=== PATIENT | male | born 1940 | race Caucasian/White ===

== ENCOUNTER → 2016-10-01 | Outpatient (REF) ==
[~2016-10-01] MED LIST: ACTOS30 MG PO; ASPIRIN E.C. 8181 MG PO; CARDURA 2MG2 MG PO; FERROUS SU325 MG/TAB PO; FLOMAX 0.40.4 MG/CAP PO; FLONASE NASAL S16 GM NS; FOLIC ACID 40400 MCG PO; LAMISIL250 MG PO; LASIX 40MG TABL40 MG PO; MICRONASE2.5 MG PO; PRILOTC; SYNTHROID0.088 MG/T PO; TYLENOL 325MG325 MG PO; VITAMIN C500 MG PO; ZOCOR 10MG10 MG PO
== END ==
LOC: ZLAB.WCH 14:54
DX: Z01.89 Encounter for other specified special examinations (principal)

== ENCOUNTER → 2017-01-04 | Outpatient (REF) | LOC: ZLAB.WCH 18:02 | DX: Z01.89 Encounter for other specified special examinations (principal) ==

== ENCOUNTER → 2017-04-16 | Outpatient (REF) ==
[2017-04-16 16:27] LABS: PSA-TOTAL 1.42 ng/mL (0-4); THYROID STIMULATING HORMONE 3.14 uIU/mL (0.465-4.680)
== END ==
LOC: ZLAB.WCH 14:23
PROVIDERS: Internal Medicine
DX: Z01.89 Encounter for other specified special examinations (principal)
CPT/HCPCS: G0103

== ENCOUNTER → 2017-07-26 | Outpatient (REF) | LOC: ZLAB.WCH 08:38 | DX: Z01.89 Encounter for other specified special examinations (principal) ==

== ENCOUNTER → 2017-10-29 | Outpatient (REF) | LOC: ZLAB.WCH 15:06 | DX: Z01.89 Encounter for other specified special examinations (principal) ==

== ENCOUNTER 2018-01-21 09:34 | Outpatient (CLI) | payer MEDICARE, OTHER ==
[~2018-01-21] VITALS: Ht 175.3 cm; Wt 135.3 kg
[~2018-01-21 09:34] MED LIST changes: +AMARYL4 MG PO; +ASPIRIN 81M81 MG/TA2 PO; +FLEXERIL5 MG PO; +GLUCOPHAGE500 MG/TAB PO; +LIPITOR 40MG TA40 MG PO; +LOPRESSOR 550 MG/TAB PO; +NAPROXEN 3375 MG/TAB PO; +ZESTRIL 5MG5 MG PO
[2018-01-21 10:13] VITALS: BP 111/62; PULSE 91
[2018-01-21 11:24] VITALS: BP 115/61; PULSE 102
[2018-01-21 11:35] VITALS: BP 108/74; PULSE 78
[2018-01-21 11:50] VITALS: BP 113/80; PULSE 95
[2018-01-21 12:06] VITALS: BP 111/48; PULSE 96
[2018-01-21 12:30] VITALS: BP 133/64; PULSE 95
== END 2018-01-21 12:58 | disposition home or self-care (01) ==
LOC: COL.RAD 09:34
DX: M48.07 Spinal stenosis, lumbosacral region (principal); M51.26 Other intervertebral disc displacement, lumbar region; M12.88 Other specific arthropathies, not elsewhere classified, other specified site; Z95.0 Presence of cardiac pacemaker
CPT/HCPCS: Q9965

== ENCOUNTER 2018-03-11 17:34 | Emergency (ER) | payer MEDICARE, OTHER ==
[~2018-03-11] VITALS: Ht 177.8 cm; Wt 131.8 kg
[2018-03-11] MEDS ORDERED: LASIX 80MG TABL80 MG PO (17:57)
[2018-03-11] MEDS ORDERED: GLUCOPHAGE500 MG/TAB PO (17:58)
[2018-03-11] MEDS ORDERED: FLOMAX 0.40.4 MG/CAP PO (17:58)
[2018-03-11] MEDS ORDERED: AMARYL4 MG PO (17:58)
[2018-03-11] MEDS ORDERED: SYNTHROID0.088 MG/T PO (18:03)
[2018-03-11] MEDS ORDERED: LIPITOR 40MG TA40 MG PO (18:03)
[2018-03-11] MEDS ORDERED: TOPROL XL 50MG50 MG PO (18:03)
[2018-03-11] MEDS ORDERED: ZESTRIL 5MG5 MG PO (18:03)
[2018-03-11] MEDS ORDERED: EC-NAPROSYN375 MG PO (18:04)
[2018-03-11] MEDS ORDERED: NITROSTAT0.4 MG/TAB SL (18:04)
[2018-03-11] MEDS ORDERED: NORCO 325 MG-7.1 TAB PO (18:04)
[2018-03-11] MEDS ORDERED: ASPIRIN 81M81 MG/TA2 PO (18:04)
[2018-03-11 20:00] LABS: BASO % 0.3 % (0.0-2.0); EOS # 0.2 (0.0-0.7); EOS % 2.6 % (0-4.0); GRAN % 75.5 % (42.2-75.2); LYMPH # 0.8 (1.2-3.4); LYMPH % 11.4 % (20.0-51.0); MEAN CELL VOLUME 94 fl (80.0-100.0); MEAN CORPUSCULAR HGB CONC 32 g/dl (33.0-37.0); MONO # 0.6 (0.1-0.6); MONO % 9.3 % (1.7-9.3); PLATELET COUNT 223 K/mm3 (130-400); RED BLOOD COUNT 3.17 M/mm3 (4.20-5.60); REDCELL DISTRIBUTION WIDTH-CV 14.4 % (11.5-14.5)
[2018-03-11 20:01] LABS: HEMATOCRIT 29.9 % (42.0-52.0); HEMOGLOBIN 9.7 g/dl (13.5-18.0); MEAN CORPUSCULAR HEMOGLOBIN 31 pg (27.0-31.0)
[2018-03-11 20:11] LABS: ALBUMIN 3.4 gm/dL (3.5-5.0); BILIRUBIN,TOTAL 0.3 mg/dL (0.0-1.0); C-REACTIVE PROTEIN 2.5 mg/dL (0.0-0.9); CREATININE, serum 1.77 mg/dL (0.66-1.25); POTASSIUM 4.3 mmol/L (3.4-5.0); TOTAL PROTEIN 6.6 gm/dL (6.4-8.2)
[2018-03-11] MEDS ORDERED: BACTRIM DS 8001 TAB PO (20:37)
[2018-03-11 21:25] VITALS: BP 103/54; PULSE 125; TEMP 97.8
== END 2018-03-11 22:10 | disposition short-term general hospital (02) ==
LOC: COL.ER 17:34
PROVIDERS: Emergency Medicine
DX: M25.552 Pain in left hip (principal); L03.116 Cellulitis of left lower limb; M16.12 Unilateral primary osteoarthritis, left hip; E11.649 Type 2 diabetes mellitus with hypoglycemia without coma; I50.9 Heart failure, unspecified; I25.10 Atherosclerotic heart disease of native coronary artery without angina pectoris; Z79.84 Long term (current) use of oral hypoglycemic drugs; Z79.82 Long term (current) use of aspirin
CPT/HCPCS: J7030; J7050

== ENCOUNTER → 2018-03-27 | Outpatient (CLI) | payer MEDICARE, OTHER ==
[~2018-03-27] MED LIST changes: +BACTRIM DS 8001 TAB PO; +EC-NAPROSYN375 MG PO; +LASIX 80MG TABL80 MG PO; +NITROSTAT0.4 MG/TAB SL; +NORCO 325 MG-7.1 TAB PO; +TOPROL XL 50MG50 MG PO
[2018-03-27 14:49] LABS: HEMATOCRIT 33.1 % (42.0-52.0); HEMOGLOBIN 10.8 g/dl (13.5-18.0); MEAN CELL VOLUME 94 fl (80.0-100.0); MEAN CORPUSCULAR HEMOGLOBIN 31 pg (27.0-31.0); MEAN CORPUSCULAR HGB CONC 33 g/dl (33.0-37.0); MEAN PLATELET VOLUME 10.6 fl (7.4-10.4); PLATELET COUNT 208 K/mm3 (130-400); RED BLOOD COUNT 3.52 M/mm3 (4.20-5.60)
[2018-03-27 14:59] LABS: SYNOVIAL FL. MONONUCLEAR 46.1 % (0-75); SYNOVIAL FLUID RBC 30000 /mm3 (0-0); SYNOVIAL FLUID WBC 433 /mm3 (200-600)
[2018-03-27 15:09] LABS: ERYTHROCYTE SEDIMENTATION RATE 37 mm/hr (0-30)
[2018-03-27 22:25] LABS: SYNOVIAL FLUID APPEARANCE HAZY; SYNOVIAL FLUID COLOR RED
== END ==
LOC: COL.RAD 12:47
PROVIDERS: Orthopaedic Surgery
DX: M16.12 Unilateral primary osteoarthritis, left hip (principal)

== ENCOUNTER → 2018-06-17 | Outpatient (REF) | LOC: ZLAB.WCH 16:21 | DX: Z01.89 Encounter for other specified special examinations (principal) ==